=== PATIENT | female | born 1995 | race African-American/Black ===

== ENCOUNTER 2024-03-16 19:44 | Emergency (ER) | payer MEDICARE, MEDICAID ==
[~2024-03-16] VITALS: Ht 170.2 cm; Wt 66.0 kg
[2024-03-16 19:47] VITALS: O2SAT 97
[2024-03-16] MEDS: LORAZEPAM 1MG TABLET PO ONE (20:45)
[2024-03-16 21:38] LABS: CLARITY URINE CLOUDY (CLEAR); COLOR URINE DARK YELLOW (YELLOW); GLUCOSE URINE NEGATIVE (NEGATIVE); KETONES URINE 1+ (NEGATIVE); LEUKOCYTE ESTERASE URINE TRACE (NEGATIVE); NITRITE URINE NEGATIVE (NEGATIVE); OCCULT BLOOD URINE NEGATIVE (NEGATIVE); PH URINE 5.5 (4.5-8.0); PROTEIN URINE TRACE (NEGATIVE); SPECIFIC GRAVITY URINE 1.032 (1.005-1.030)
[2024-03-16 21:51] LABS: *AMPHETAMINES SCREEN URINE PRESUMPTIVE POSITIVE (NEGATIVE); *BARBITURATES SCREEN URINE NEGATIVE (NEGATIVE); *BENZODIAZEPINES SCREEN URINE NEGATIVE (NEGATIVE); *COCAINE SCREEN URINE PRESUMPTIVE POSITIVE (NEGATIVE); CANNABINOID URINE SCREEN PRESUMPTIVE POSITIVE (NEGATIVE); ECSTASY MDMA SCREEN URINE NEGATIVE (NEGATIVE); METHADONE URINE SCREEN NEGATIVE (NEGATIVE); OPIATES URINE SCREEN NEGATIVE (NEGATIVE); PHENCYCLIDINE URINE SCREEN NEGATIVE (NEGATIVE); SQUAMOUS EPITHELIAL CELL URINE 1+ /lpf (RARE/1+)
[2024-03-16 21:52] LABS: RBC URINE 0-2 /hpf (0-2)
[2024-03-16 21:53] LABS: AMORPHOUS SEDIMENT URINE 1+ /lpf; BACTERIA URINE 3+; CALCIUM OXALATE CRYSTALS URINE 2+ /lpf; MUCUS URINE 2+ /lpf (< = 2+); WBC URINE 0-2 /hpf (0-2)
[2024-03-16 22:00] VITALS: BP 125/72; PULSE 91; RESP 18; TEMP 98.1
[2024-03-16 22:00] LABS: BASOPHILS % 0.3 % (0.0-2.0); EOSINOPHILS % 0.4 % (0.0-5.0); HEMATOCRIT. 36.6 % (36.0-48.0); HEMOGLOBIN. 12.3 g/dL (12.0-16.0); LYMPHOCYTES % 12.2 % (20.0-50.0); MEAN CORPUSCULAR HEMOGLOBIN 30.4 pg (28.0-32.0); MEAN CORPUSCULAR HGB CONC 33.5 g/dL (31.0-37.0); MEAN CORPUSCULAR VOLUME 90.9 fL (81.0-99.0); MEAN PLATELET VOLUME 8.4 fl (7.4-10.4); MONOCYTES % 10.3 % (2.0-8.0); NEUTROPHILS % 76.8 % (40.0-76.0); PLATELET 306 x1000/uL (130-400); RED BLOOD CELL COUNT 4.02 mill/uL (4.2-5.4); RED CELL DISTRIBUTION WIDTH 14.3 % (11.6-14.6); WHITE BLOOD COUNT 13.6 x1000/uL (4.5-11.0)
[2024-03-16 22:08] LABS: HCG SCREEN NEGATIVE
[2024-03-16 22:11] LABS: CHLORIDE 104 mEq/L (98-107); POTASSIUM 3.1 mEq/L (3.5-5.1); SODIUM 139 mEq/L (136-145)
[2024-03-16 22:13] LABS: CALCIUM 8.4 mg/dL (8.7-10.4); CARBON DIOXIDE 29 mEq/L (21-32)
[2024-03-16] MEDS: HALOPERIDOL LACTATE 5MG/ML VIAL IM ONE (22:15)
[2024-03-16 22:18] LABS: CREATININE 0.8 mg/dL (0.6-1.0); GLUCOSE 82 mg/dL (70-105); UREA NITROGEN BLOOD 7 mg/dL (9-23)
[2024-03-16 22:20] LABS: ACETAMINOPHEN < 2 ug/mL (10-30); ALANINE AMINOTRANSFERASE < 7 IU/L (10-49); ALBUMIN 3.9 g/dL (3.2-4.8); ASPARTATE AMINOTRANSFERASE 13 IU/L (<34); BILIRUBIN TOTAL 0.5 mg/dL (0.1-1.0); PROTEIN TOTAL 6.6 g/dL (6.0-8.3)
[2024-03-16 22:22] LABS: ETHANOL BLOOD < 10 mg/dL (<10)
[2024-03-16] MEDS: LORAZEPAM 2MG/ML INJ IM ONE (22:30)
== END 2024-03-16 23:01 | disposition left against medical advice (07) ==
LOC: ER 19:44
DX: T40.5X1A Poisoning by cocaine, accidental (unintentional), initial encounter (principal); F23 Brief psychotic disorder; Y92.89 Other specified places as the place of occurrence of the external cause
CPT/HCPCS: 80053; 80305; 81003; 81025; 80307; 80329; 80320; 84703; 85025; 36415; 99283; J1630; G0480

== ENCOUNTER 2024-04-20 01:46 | Emergency (ER) | payer MEDICARE, MEDICAID ==
[~2024-04-20] VITALS: Ht 167.6 cm; Wt 75.0 kg
[2024-04-20 02:00] VITALS: O2SAT 99
[2024-04-20 06:35] VITALS: BP 122/68; PULSE 89; RESP 16; TEMP 98.2
== END 2024-04-20 06:37 | disposition home or self-care (01) ==
LOC: ER 01:46
DX: S01.21XA Laceration without foreign body of nose, initial encounter (principal); F41.9 Anxiety disorder, unspecified; F31.9 Bipolar disorder, unspecified; F20.9 Schizophrenia, unspecified; F12.90 Cannabis use, unspecified, uncomplicated; F14.90 Cocaine use, unspecified, uncomplicated; Y08.89XA Assault by other specified means, initial encounter; Y93.89 Activity, other specified; Y92.89 Other specified places as the place of occurrence of the external cause; Y99.8 Other external cause status
CPT/HCPCS: 12011; 70486; 99284

== ENCOUNTER 2024-07-21 09:36 | Emergency (ER) | payer MEDICARE, MEDICAID ==
[~2024-07-21] VITALS: Ht 167.6 cm; Wt 75.0 kg
[2024-07-21 09:47] VITALS: BP 109/76; PULSE 98; RESP 16; TEMP 97.5; O2SAT 100
[2024-07-21] MEDS ORDERED: TOPUD PO (10:06)
== END 2024-07-21 13:08 | disposition home or self-care (01) ==
LOC: ER 12:46
DX: S01.419A Laceration without foreign body of unspecified cheek and temporomandibular area, initial encounter (principal); F41.9 Anxiety disorder, unspecified; F31.9 Bipolar disorder, unspecified; F20.9 Schizophrenia, unspecified; F14.90 Cocaine use, unspecified, uncomplicated; F12.90 Cannabis use, unspecified, uncomplicated; Y08.89XA Assault by other specified means, initial encounter; Y93.89 Activity, other specified; Y92.89 Other specified places as the place of occurrence of the external cause; Y99.8 Other external cause status
CPT/HCPCS: 99283